=== PATIENT | female | born 1945 | race Caucasian/White ===

== ENCOUNTER 2017-07-24 18:33 | Observation (INO) ==
--- NOTE | 2017-07-24 21:17 | Emergency Department Note ---
Disposition Clinical Impression: Cough, Acute electrocardiogram changes Pneumonia Qualifiers: Pneumonia type: due to unspecified organism Laterality: right Lung location: lower lobe of lung Qualified Code(s): J18.1 - Lobar pneumonia, unspecified organism Atrial fibrillation Qualifiers: Atrial fibrillation type: chronic Qualified Code(s): I48.2 - Chronic atrial fibrillation Disposition: Admitted As Inpatient Condition: Good Instructions: Pneumonia (ED), Acute Cough (ED) Referrals: Darline Coker [Primary Care Provider] - Forms: ED Satisfaction Letter Time of Disposition: 00:53 General Adult HPI - General Chief complaint: ED Upper Respiratory Infection Stated complaint: "cough" Time Seen by Provider: 07/24/17 20:05 Source: patient Limitations: no limitations Nursing Notes Reviewed: Yes Vital Signs Reviewed: Yes - History of Present Illness HPI Narrative: Patient is a 72-year-old female that presents the emergency department for cough and shortness of breath. States this is been ongoing for the past 4 days and has progressively been getting worse. She states that she has been coughing up a whitish material. Patient does state that she has had a fever. She states that she has not checked her temperature but states that she has felt very warm. Patient does state that she has had generalized body aches. Patient denies ever having anything like this before. Patient denies any active chest pain at this time. Patient states that overall she just does not feel well. Pain Scale: 0 - Related Data Home Medications Medication Instructions Recorded Confirmed Alendronate Sodium [Fosamax] 70 mg PO QWEEK PRN 04/05/15 04/05/15 Aspirin Enteric Coated [Aspirin EC] 81 mg PO DAILY 04/05/15 04/05/15 Cholecalciferol (Vitamin D3) 1,000 unit PO DAILY 04/05/15 04/05/15 [Vitamin D3] Ergocalciferol (VITAMIN D2) 50,000 unit PO QWEEK PRN 04/05/15 04/05/15 [Vitamin D2 (50,000 UNIT)] Furosemide [Lasix] 40 mg PO DAILY PRN 04/05/15 04/05/15 Letrozole [Femara] 2.5 mg PO DAILY 04/05/15 04/05/15 Levothyroxine [Synthroid] 75 mcg PO DAILY 04/05/15 04/05/15 Lovastatin [Altoprev] 40 mg PO DAILY 04/05/15 04/05/15 Omeprazole [PriLOSEC] 20 mg PO DAILY 04/05/15 04/05/15 Pioglitazone [Actos] 45 mg PO DAILY 04/05/15 04/05/15 Potassium Chloride 20 meq PO BID 04/05/15 04/05/15 Sertraline [Zoloft] 100 mg PO DAILY 04/05/15 04/05/15 Sucralfate [Carafate] 1 gm PO DAILY 04/05/15 04/05/15 hydroCHLOROthiazide 25 mg PO DAILY 04/05/15 04/05/15 [Hydrochlorothiazide] Previous Rx's Medication Instructions Recorded Diltiazem CD (24hr) [Cardizem CD] 360 mg PO DAILY #30 cap.er.24h 04/07/15 Metoprolol XL (24 HR) Succ [Toprol 100 mg PO DAILY #30 tab.er.24h 04/07/15 Xl] Ondansetron ODT [Zofran ODT] 1 - 2 tab SL Q4HR #20 tab.rapdis 07/30/15 cephALEXin [Cephalexin] 500 mg PO QID #28 tablet 04/10/16 Allergies Allergy/AdvReac Type Severity Reaction Status Date / Time codeine Allergy Palpitation Verified 04/10/16 20:43 s All systems ED: reviewed and negative except as stated. Constitutional: Reports: fever Cardiovascular: Denies: chest pain Respiratory: Reports: cough, dyspnea, sputum production Gastrointestinal: Denies: abdominal pain, nausea, vomiting Past Medical History - Past Medical History Medical history: Reports: atrial fibrillation, cancer, DVT, diabetes, GERD, hypertension, thyroid disease Surgical history: Reports: , cancer surgery, cholecystectomy, hysterectomy, orthopedic, other Psychiatric history: Reports: no psych history - Social History Smoking Status: Never smoker Smokeless Tobacco Status: No Alcohol use: Reports: none Drug use: Reports: none Physical Exam - General Limitations: no limitations General appearance: alert, in no apparent distress - Head Head exam: atraumatic, normocephalic - Eye Eye exam: Present: normal appearance, EOMI - Neck Neck exam: Present: normal inspection, full ROM, trachea midline - Respiratory Respiratory exam: Present: other (Course breath sounds bilaterally.) - Cardiovascular Cardiovascular exam: Present: tachycardia, normal heart sounds, +S1, +S2 - Abdominal Exam Abdominal exam: Present: soft, Non-Tender, normal bowel sounds - Neurological Exam Neurological exam: Present: alert, oriented X3 - Psychiatric Psychiatric exam: Present: normal affect, normal mood - Skin Skin exam: Present: warm, dry, intact Course Vital Signs Temperature 98.4 F 07/24/17 18:43 Pulse Rate 105 07/24/17 18:43 Respiratory Rate 16 07/24/17 18:43 Blood Pressure 155/91 07/24/17 18:43 O2 Sat by Pulse Oximetry 94 07/24/17 18:43 Temperature 98.4 F 07/24/17 18:43 Pulse Rate 105 07/24/17 18:43 Respiratory Rate 16 07/24/17 18:43 Blood Pressure 155/91 07/24/17 18:43 O2 Sat by Pulse Oximetry 94 07/24/17 18:43 Oxygen Delivery Oxygen Delivery Room Air Medical Decision Making - MDM Narrative Medical decision making narrative: Due to the patient presenting with cough shortness of breath and overall not feeling well we will obtain a CBC, BMP, troponin and chest x-ray and EKG. The chest x-ray was read as negative however after looking at the chest x-ray I feel that there may be some consolidation in the right lower lobe. Patient will be treated with IV antibiotics and due to the EKG findings of the lateral depressions I feel that this patient will need to be admitted to the hospital for further evaluation and management. There is concern that this could be related to possible cardiac ischemia. I informed the patient the findings on her EKG and the possibility of pneumonia. She is willing to be admitted to the hospital. I called and spoke with the hospitalist and she has accepted the patient to their service. The patient will be admitted to the hospital at this time for further evaluation and management. - Lab Data Lab results reviewed: Yes I reviewed the patient's lab results. Result diagrams: 07/24/17 21:35 07/24/17 21:35 Lab Results 07/24/17 07/24/17 Range/Units 21:35 21:35 WBC 4.5 (4.3-11.1) K/mcL RBC 4.18 (3.82-4.97) M/mcL Hgb 12.9 (11.5-15.4) g/dL Hct 38.4 (35.3-44.9) % MCV 91.9 (83.0-100.0) fL MCH 30.9 (28.0-33.3) pg MCHC 33.6 (31.6-35.5) g/dL RDW 13.4 (11.5-14.5) % Plt Count 174 (140-400) K/mcL MPV 10.2 (9.4-12.4) fL Immature Gran % 0.2 (0-4) % Seg Neutrophils % 63.3 % Lymphocytes % 19.6 % Monocytes % 12.9 % Eosinophils % 3.8 % Basophils % 0.2 % Neutrophils # 2.9 (1.6-8.9) K/mcL Lymphocytes # 0.9 (0.6-4.6) K/mcL Monocytes # 0.6 (0.0-1.3) K/mcL Eosinophils # 0.2 (0.0-0.6) K/mcL Basophils # 0.0 (0.0-0.2) K/mcL Sodium 138 (136-145) mEq/L Potassium 2.9 L (3.5-5.1) mEq/L Chloride 100 (98-107) mEq/L Carbon Dioxide 30 H (23-29) mEq/L BUN 11 (8-23) mg/dL Creatinine 0.62 (0.60-1.20) mg/dL Est GFR ( Amer) > 60 (> 60) Est GFR (Non-Af Amer) > 60 (> 60) BUN/Creatinine Ratio 18 (6-26) Glucose 155 H (70-105) mg/dL Calculated Osmolality 289 (280-300) Calcium 8.8 (8.6-10.3) mg/dL Troponin I < 0.03 (< 0.04) ng/mL - Radiology Data Radiology results reviewed: Yes I reviewed the patient's radiology results. Chest X-Ray 07/24/17 18:46 IMPRESSION: 1. No focal airspace disease. 2. Cardiomegaly. D/ / Mal Diaz MD / Mal Diaz MD Interpreting Provider: Mal Diaz MD - EKG Data EKG #1 EKG attestation: Yes I reviewed and interpreted this EKG. EKG results narrative: EKG shows atrial fibrillation at a rate of 91 bpm, QRS ratio 99, QTC of 426. There are some mild depressions in V4 V5 and V6. This is compared to previous EKG on 04/05/15 which also showed atrial fibrillation with rapid ventricular response at a rate of 105 bpm. Depressions were not present on previous EKG. EKG #2 EKG attestation: Yes I reviewed and interpreted this EKG. EKG results narrative: EKG showed atrial fibrillation rate of 103 bpm, QRS duration of 105, QTC of 436. The depressions in V4 V5 and V6 seemed to have worsened. EKG was obtained at 2331.
[2017-07-24 21:47] LABS: Basophils % 0.2 %; Eosinophils # 0.2 K/mcL (0.0-0.6); Eosinophils % 3.8 %; Hematocrit 38.4 % (35.3-44.9); Hemoglobin 12.9 g/dL (11.5-15.4); Immature Granulocytes % 0.2 % (0-4); Lymphocytes # 0.9 K/mcL (0.6-4.6); Lymphocytes % 19.6 %; Mean Corpuscular HGB Conc 33.6 g/dL (31.6-35.5); Mean Corpuscular Hemoglobin 30.9 pg (28.0-33.3); Mean Corpuscular Volume 91.9 fL (83.0-100.0); Mean Platelet Volume 10.2 fL (9.4-12.4); Monocytes # 0.6 K/mcL (0.0-1.3); Monocytes % 12.9 %; Neutrophils # 2.9 K/mcL (1.6-8.9); Platelet Count 174 K/mcL (140-400); Red Blood Count 4.18 M/mcL (3.82-4.97); Red Cell Distribution Width 13.4 % (11.5-14.5); Segmented Neutrophils % 63.3 %
[2017-07-24 22:08] LABS: BUN/Creatinine Ratio 18 (6-26); Blood Urea Nitrogen 11 mg/dL (8-23); Calcium 8.8 mg/dL (8.6-10.3); Carbon Dioxide 30 mEq/L (23-29); Chloride 100 mEq/L (98-107); Glucose 155 mg/dL (70-105); Osmolality,Calculated 289 (280-300); Potassium 2.9 mEq/L (3.5-5.1); Sodium 138 mEq/L (136-145); eGFR For African Americans > 60 (> 60); eGFR For Non-African Americans > 60 (> 60)
[2017-07-24 22:09] LABS: Troponin I < 0.03 ng/mL (< 0.04)
[2017-07-24] MEDS ORDERED: Aspirin 81 MG TAB.CHEW PO STA (23:44)
[2017-07-24] MEDS ORDERED: Potassium Chloride Elixir 20 MEQ/15 ML UDC PO ONE (23:58)
--- NOTE | 2017-07-25 00:14 | Emergency Department Note ---
Disposition Clinical Impression: Cough, Acute electrocardiogram changes, Atrial fibrillation Pneumonia Qualifiers: Pneumonia type: due to unspecified organism Laterality: right Lung location: lower lobe of lung Qualified Code(s): J18.1 - Lobar pneumonia, unspecified organism Disposition: Admitted As Inpatient Condition: Good Instructions: Pneumonia (ED), Acute Cough (ED) Referrals: Darline Coker [Primary Care Provider] - Forms: ED Satisfaction Letter General Adult HPI - General Chief complaint: ED Upper Respiratory Infection Stated complaint: "cough" Time Seen by Provider: 07/24/17 20:05 Source: patient Limitations: no limitations - History of Present Illness Pain Scale: 0 - Related Data Home Medications Medication Instructions Recorded Confirmed Alendronate Sodium [Fosamax] 70 mg PO QWEEK PRN 04/05/15 04/05/15 Aspirin Enteric Coated [Aspirin EC] 81 mg PO DAILY 04/05/15 04/05/15 Cholecalciferol (Vitamin D3) 1,000 unit PO DAILY 04/05/15 04/05/15 [Vitamin D3] Ergocalciferol (VITAMIN D2) 50,000 unit PO QWEEK PRN 04/05/15 04/05/15 [Vitamin D2 (50,000 UNIT)] Furosemide [Lasix] 40 mg PO DAILY PRN 04/05/15 04/05/15 Letrozole [Femara] 2.5 mg PO DAILY 04/05/15 04/05/15 Levothyroxine [Synthroid] 75 mcg PO DAILY 04/05/15 04/05/15 Lovastatin [Altoprev] 40 mg PO DAILY 04/05/15 04/05/15 Omeprazole [PriLOSEC] 20 mg PO DAILY 04/05/15 04/05/15 Pioglitazone [Actos] 45 mg PO DAILY 04/05/15 04/05/15 Potassium Chloride 20 meq PO BID 04/05/15 04/05/15 Sertraline [Zoloft] 100 mg PO DAILY 04/05/15 04/05/15 Sucralfate [Carafate] 1 gm PO DAILY 04/05/15 04/05/15 hydroCHLOROthiazide 25 mg PO DAILY 04/05/15 04/05/15 [Hydrochlorothiazide] Previous Rx's Medication Instructions Recorded Diltiazem CD (24hr) [Cardizem CD] 360 mg PO DAILY #30 cap.er.24h 04/07/15 Metoprolol XL (24 HR) Succ [Toprol 100 mg PO DAILY #30 tab.er.24h 04/07/15 Xl] Ondansetron ODT [Zofran ODT] 1 - 2 tab SL Q4HR #20 tab.rapdis 07/30/15 cephALEXin [Cephalexin] 500 mg PO QID #28 tablet 04/10/16 Allergies Allergy/AdvReac Type Severity Reaction Status Date / Time codeine Allergy Palpitation Verified 04/10/16 20:43 s Constitutional: Reports: fever Cardiovascular: Denies: chest pain Respiratory: Reports: cough, dyspnea, sputum production Gastrointestinal: Denies: abdominal pain, nausea, vomiting Past Medical History - Past Medical History Medical history: Reports: atrial fibrillation, cancer, DVT, diabetes, GERD, hypertension, thyroid disease Surgical history: Reports: , cancer surgery, cholecystectomy, hysterectomy, orthopedic, other Psychiatric history: Reports: no psych history - Social History Smoking Status: Never smoker Smokeless Tobacco Status: No Alcohol use: Reports: none Drug use: Reports: none Physical Exam - General Limitations: no limitations General appearance: alert, in no apparent distress Course Vital Signs Temperature 98.4 F 07/24/17 18:43 Pulse Rate 105 07/24/17 18:43 Respiratory Rate 16 07/24/17 18:43 Blood Pressure 155/91 07/24/17 18:43 O2 Sat by Pulse Oximetry 94 07/24/17 18:43 Temperature 99.0 F 07/25/17 00:11 Pulse Rate 80 07/25/17 00:11 Respiratory Rate 14 07/25/17 00:11 Blood Pressure 159/87 07/25/17 00:11 O2 Sat by Pulse Oximetry 97 07/25/17 00:11 Oxygen Delivery Oxygen Delivery Room Air Medical Decision Making - Lab Data Result diagrams: 07/24/17 21:35 07/24/17 21:35 Lab Results 07/24/17 07/24/17 Range/Units 21:35 21:35 WBC 4.5 (4.3-11.1) K/mcL RBC 4.18 (3.82-4.97) M/mcL Hgb 12.9 (11.5-15.4) g/dL Hct 38.4 (35.3-44.9) % MCV 91.9 (83.0-100.0) fL MCH 30.9 (28.0-33.3) pg MCHC 33.6 (31.6-35.5) g/dL RDW 13.4 (11.5-14.5) % Plt Count 174 (140-400) K/mcL MPV 10.2 (9.4-12.4) fL Immature Gran % 0.2 (0-4) % Seg Neutrophils % 63.3 % Lymphocytes % 19.6 % Monocytes % 12.9 % Eosinophils % 3.8 % Basophils % 0.2 % Neutrophils # 2.9 (1.6-8.9) K/mcL Lymphocytes # 0.9 (0.6-4.6) K/mcL Monocytes # 0.6 (0.0-1.3) K/mcL Eosinophils # 0.2 (0.0-0.6) K/mcL Basophils # 0.0 (0.0-0.2) K/mcL Sodium 138 (136-145) mEq/L Potassium 2.9 L (3.5-5.1) mEq/L Chloride 100 (98-107) mEq/L Carbon Dioxide 30 H (23-29) mEq/L BUN 11 (8-23) mg/dL Creatinine 0.62 (0.60-1.20) mg/dL Est GFR ( Amer) > 60 (> 60) Est GFR (Non-Af Amer) > 60 (> 60) BUN/Creatinine Ratio 18 (6-26) Glucose 155 H (70-105) mg/dL Calculated Osmolality 289 (280-300) Calcium 8.8 (8.6-10.3) mg/dL Troponin I < 0.03 (< 0.04) ng/mL Attestation Statement - Attestation Attestation: I examined this patient and my medical decision-making was reviewed with the Resident Physician, Dr. Valera. I agree with the documented findings, disposition and treatment plan as described except to the extent set forth below. Patient is a 72-year-old white female with no pre-existing lung disease who presents to the emergency department with a four-day history of gradually worsening nasal congestion and sinus pain and pressure, productive cough with whitish sputum and generalized body aches. Patient also complains of subjective fevers and chills over the past few days. Patient's having some mild shortness of breath but denies any chest pain pressure or heaviness. Patient denies any palpitations, no back or flank pain, no abdominal pain, and no posttussive emesis. I agree with patient's physical exam findings as documented. Vital signs are stable on arrival. Patient is in no acute distress no signs of respiratory distress on assessment. Patient was placed on monitoring and pulse ox EKG was obtained which showed some new ST depression in the lateral leads 1 mm. This is new compared to an old EKG, and she has history of chronic A. fib and rhythm showed her to be in atrial fibrillation but rate controlled. Patient had lab evaluation including a 2 view chest x-ray. Due to her abnormal EKG was also including a troponin. Chest x-ray shows some streak artifact along the right lower lobe that seen on both use concerning for possible early pneumonia. Patient's troponin is negative. Briefly evaluations patient still denies chest discomfort or repeat EKG was obtained which shows persistent ST depression in lateral leads. Patient was administered aspirin and will admit for further evaluation of abnormal EKG. Concerned that this could be more of a presentation of atypical angina or exertional dyspnea causing her EKG changes. Patient will be started on IV Rocephin and Zithromax for community-acquired pneumonia as well. Case was discussed with hospitalist and patient will be admitted for further evaluation and management.
[2017-07-25] MEDS ORDERED: Azithromycin 500 MG in D5% in Water 250 ML IVPB ONE (00:52)
[2017-07-25] MEDS ORDERED: cefTRIAXone 1,000 MG in Water for inj. (sterile) 20 ML 10 ML IVP ONE (00:52)
[2017-07-25] MEDS ORDERED: Naloxone 0.4 MG/ML INJ IVP PRN (01:37)
[2017-07-25] MEDS ORDERED: Dextrose Gel 15 GM/37.5 ML TUBE PO PRN ×2 (01:41)
[2017-07-25] MEDS ORDERED: *HR* Dextrose 50 % in Water (Syg) 50 ML SYRINGE IVP PRN (01:41)
[2017-07-25] MEDS ORDERED: D5% in Water 1,000 ML IVC PRN (01:41)
--- NOTE | 2017-07-25 01:44 | Internal Med History&Physical ---
Date of Encounter: 07/25/17 Time of Encounter: 01:43 Internal Medicine - H&P: HPI Chief complaint: Cough Admitted From: Home Plans for Post Hospital Care: Home History of present illness: Ms. Mayers is a 72 year old female with DM, Afib not on A/C, presented to the ER with hx of 4 days of cough, and shortness of breath after coughing. Cough is productive of white/foamy phlegm. She denies fever or chills, recent travel, no sick contacts. She endorsed chronic arthralgias. She did not receive a flu vaccine in this season. Work up in the ER unremarkable, save for hyokalemia, patient is on diuretics at home. CXR is without infiltrates EKG showed some <0.5mm ST depression in the lateral leads, patient has no cardiac symptoms-she denies CP, SOB on exertion or at rest, orthopnea, PND, no increased leg swelling She has no neurologic symptoms She has received IV antibiotics for presumed PNA in the ER She is wheezing during my eval even though she has no formal diagnosis of COPD or asthma She likely has viral bronchitis withh hyperreactive airways, we will place on observation for this, ECHO has been ordered for a.m and repeat EKG ordered as well Past Med Surg Social Fam HX - Past Medical History Medical history: atrial fibrillation, cancer, DVT, diabetes, GERD, hypertension , thyroid disease Psychiatric history: no psych history - Past Surgical History Surgical History: , cancer surgery, cholecystectomy, hysterectomy, orthopedic, other - Social History Smoking Status: Never smoker Smokeless Tobacco Status: No Alcohol use: none Drug use: none - Family History Mother Living Status: Hx Family Cancer: Yes (bone cancer) Father Hx Family Cardiac Disorders: Yes (heart attack, blood clots) Internal Medicine - H&P: Meds Alendronate Sodium [Fosamax] 70 mg PO QWEEK PRN 04/05/15 [History] Aspirin Enteric Coated [Aspirin EC] 81 mg PO DAILY 04/05/15 [History] Cholecalciferol (Vitamin D3) [Vitamin D3] 1,000 unit PO DAILY 04/05/15 [History] Ergocalciferol (VITAMIN D2) [Vitamin D2 (50,000 UNIT)] 50,000 unit PO QWEEK PRN 04/05/15 [History] Furosemide [Lasix] 40 mg PO DAILY PRN 04/05/15 [History] Letrozole [Femara] 2.5 mg PO DAILY 04/05/15 [History] Levothyroxine [Synthroid] 75 mcg PO DAILY 04/05/15 [History] Lovastatin [Altoprev] 40 mg PO DAILY 04/05/15 [History] Omeprazole [PriLOSEC] 20 mg PO DAILY 04/05/15 [History] Pioglitazone [Actos] 45 mg PO DAILY 04/05/15 [History] Potassium Chloride 20 meq PO BID 04/05/15 [History] Sertraline [Zoloft] 100 mg PO DAILY 04/05/15 [History] Sucralfate [Carafate] 1 gm PO DAILY 04/05/15 [History] hydroCHLOROthiazide [Hydrochlorothiazide] 25 mg PO DAILY 04/05/15 [History] Diltiazem CD (24hr) [Cardizem CD] 360 mg PO DAILY #30 cap.er.24h 04/07/15 [Rx] Metoprolol XL (24 HR) Succ [Toprol Xl] 100 mg PO DAILY #30 tab.er.24h 04/07/15 [ Rx] Ondansetron ODT [Zofran ODT] 1 - 2 tab SL Q4HR #20 tab.rapdis 07/30/15 [Rx] cephALEXin [Cephalexin] 500 mg PO QID #28 tablet 04/10/16 [Rx] 3 Allergy/AdvReac Type Severity Reaction Status Date / Time codeine Allergy Palpitation Verified 04/10/16 20:43 s All Systems PM: A 10-system review of systems was performed and is negative for pertinent findings except as documented above in the HPI. - Constitutional Constitutional: no chills, no fever(s), no night sweats - EENT Eyes: no change in vision, no discharge, no pain, no photophobia Ears: no ear discharge, no ear pain, no tinnitus Nose, mouth and throat: no dysphagia, no nasal discharge, no neck pain, no sore throat - Cardiovascular Cardiovascular ROS IM: no chest pain, no diaphoresis, no dyspnea, no lightheadedness, no palpitations, no syncope - Respiratory Respiratory: as per HPI - Gastrointestinal Gastrointestinal: no abdominal pain, no diarrhea, no hematemesis, no hematochezia, no melena, no nausea, no vomiting - Genitourinary Genitourinary: no change in urinary stream, no dysuria, no flank pain, no hematuria - Musculoskeletal Musculoskeletal ROS IM: no numbness, no tingling - Integumentary Integumentary IM: no rash, no unusual bruising - Neurological Neurological ROS: no confusion, no convulsions, no focal weakness, no numbness, no tingling, no tremor(s) - Hematologic/Lymphatic Hematologic/Lymphatic: no easy bruising - Constitutional Vitals: Temp Pulse Resp BP Pulse Ox 99.0 F 80 16 151/89 97 07/25/17 00:11 07/25/17 00:11 07/25/17 01:37 07/25/17 01:37 07/25/17 00:11 General appearance: Present: A&O X 3, morbidly obese, no acute distress - Head Head exam: Present: atraumatic, normocephalic - Eye Eye exam: Present: PERRL, conjuntiva pink, sclera anicteric Pupils: Present: PERRL - Neck Neck exam general surgery: Present: supple, trachea midline. Absent: lymphadenopathy - Respiratory Respiratory exam: Present: wheezes (bilateral, equal, worse anteriroly, ). Absent: accessory muscle use, rales, rhonchi - Cardiovascular Cardiovascular exam: Present: RRR, +S1, +S2. Absent: diastolic murmur, gallop, rubs, systolic murmur - GI/Abdominal GI/Abdominal exam: Present: normal bowel sounds, soft, no peritoneal signs. Absent: distended, tenderness - Extremities Exam Extremities exam: Present: warm, radial pulses palpable and symmetrical. Absent : calf tenderness, cyanotic, pedal edema - Neurological Exam Neurological exam: Present: alert, CN II-XII intact, oriented X3, no focal deficits. Absent: pronater drift, facial droop, speech deficit - Skin Skin exam: Present: dry, intact Internal Med - H&P Results - Labs CBC & Chem 7: 07/24/17 21:35 07/24/17 21:35 - Assessment and plan (1) Abnormal EKG Current Visit: Yes Status: Acute Assessment and plan: Patient with SOB and bronchitis No chest pain Hx of Afib with <0.5mm ST depression in lateral leads Rpt EKG a.m, Obtain ECHO a.m Initial trop negative Rpt trop a.m (2) Bronchitis Current Visit: Yes Status: Acute Assessment and plan: Possibly viral Duonebs prn, robitussin, levaquin NO infiltrates on CXR Obtain resp infectious panel (3) Atrial fibrillation Current Visit: Yes Status: Chronic Assessment and plan: HR controlled Not on anticoagulation due to hx of GIB Continue home meds Qualifiers: Atrial fibrillation type: chronic Qualified Code(s): I48.2 - Chronic atrial fibrillation (4) Diabetes Current Visit: Yes Status: Chronic Assessment and plan: Correctional dose insulin FS ACHS ADA diet Qualifiers: Diabetes mellitus type: type 2 Diabetes mellitus intermediate teacher insulin use: without skilled nursing use Diabetes mellitus complication status: without complication Qualified Code(s): E11.9 - Type 2 diabetes mellitus without complications (5) Obesity Current Visit: Yes Status: Chronic Assessment and plan: lifestyle modification Qualifiers: Obesity type: unspecified obesity type Obesity classification: adult class 3 (BMI >= 40) Serious obesity comorbidity presence: without serious comorbidity Body mass index: BMI 40.0-44.9 Qualified Code(s): E66.9 - Obesity, unspecified; Z68.41 - Body mass index (BMI) 40.0-44.9, adult; Z68.41 - Body mass index (BMI) 40.0-44.9, adult; Z68.41 - Body mass index (BMI) 40.0-44.9 , adult; Z68.41 - Body mass index (BMI) 40.0-44.9, adult - Time Spent With Patient Total time spent is greater than 50% in coordination of care (as documented) at patient's floor/unit and/or counseling patient:
[2017-07-25] MEDS ORDERED: Ipratropium/Albuterol Neb 3 ML IH PRN (02:37)
[2017-07-25 04:02] LABS: Adenovirus Not Detected (Not Detect); Bordetella Pertussis Not Detected (Not Detect); Chlamydophila pneumoniae Not Detected (Not Detect); Coronavirus 229E Not Detected (Not Detect); Coronavirus HKU1 Not Detected (Not Detect); Coronavirus NL63 Not Detected (Not Detect); Coronavirus OC43 Not Detected (Not Detect); Human Metapneumovirus Not Detected (Not Detect); Human Rhinovirus/Enterovirus Not Detected (Not Detect); Influenza A Subtype 2009 H1 Not Detected (Not Detect); Influenza A Untypeable Not Detected (Not Detect); Influenza B ***DETECTED*** (Not Detect); Mycoplasma pneumoniae Not Detected (Not Detect); Parainfluenza Virus 1 Not Detected (Not Detect); Parainfluenza Virus 2 Not Detected (Not Detect); Parainfluenza Virus 3 Not Detected (Not Detect); Parainfluenza Virus 4 Not Detected (Not Detect); Respiratory Syncytial Virus Not Detected (Not Detect)
[2017-07-25 05:17] LABS: BUN/Creatinine Ratio 15 (6-26); Blood Urea Nitrogen 9 mg/dL (8-23); Calcium 8.8 mg/dL (8.6-10.3); Carbon Dioxide 25 mEq/L (23-29); Chloride 100 mEq/L (98-107); Glucose 247 mg/dL (70-105); Osmolality,Calculated 287 (280-300); Potassium 3.4 mEq/L (3.5-5.1); Sodium 135 mEq/L (136-145); eGFR For African Americans > 60 (> 60); eGFR For Non-African Americans > 60 (> 60)
[2017-07-25 05:18] LABS: Troponin I < 0.03 ng/mL (< 0.04)
[2017-07-25] MEDS: Insulin LISPRO 300 UNITS/3 ML VIAL SQ SCH ×4 (08:44→21:14)
[2017-07-25] MEDS ORDERED: Aspirin Enteric Coated 81 MG Tablet PO SCH (09:00)
[2017-07-25] MEDS: predniSONE 20 MG TABLET PO SCH (09:19)
[2017-07-25] MEDS: Levofloxacin 750 MG/150 ML 750 MG/150 ML BAG IVPB SCH (09:20)
[2017-07-25] MEDS: Ipratropium/Albuterol Neb 3 ML IH SCH ×5 (10:54→23:50)
[2017-07-25] MEDS ORDERED: GuaiFENesin Liq 200 MG/10 ML UDC PO PRN (16:07)
--- NOTE | 2017-07-25 17:07 | Event Note ---
Date of Encounter: 07/25/17 Time of Encounter: 17:04 Seen and examined at bedside. Patient is new to me, information obtained from chart review and patient report. Still with some shortness of breath and cough but overall improved. Afebrile. Denies chest pain. (1) Abnormal EKG No chest pain. Hx of Afib with <0.5mm ST depression in lateral leads. Serial troponin negative, repeat EKG with no acute ST changes. Echocardiogram pending. (2) influenza B Symptomatic with SOB and cough. Respiratory PCR with influenza B. Start Tamiflu. Duonebs prn, robitussin, levaquin (3) Atrial fibrillation HR initially controlled however with heart rates and 100s on 07/25/17 evening. Resume home CCB, BB. Give one-time dose IV diltiazem. No anticoagulation due to history of GI bleed. Monitor on telemetry. (4) Diabetes Correctional dose insulin FS ACHS ADA diet (5) Obesity lifestyle modification
[2017-07-25] MEDS: Diltiazem CD (24hr) 180 MG CAPSULE PO SCH (17:20)
[2017-07-25] MEDS: Metoprolol XL (24 HR) Succ 50 MG TAB.ER.24H PO SCH (17:52)
[2017-07-26] MEDS: Ipratropium/Albuterol Neb 3 ML IH SCH ×3 (03:24→15:38)
[2017-07-26 06:52] LABS: Hematocrit 36.9 % (35.3-44.9); Hemoglobin 12.6 g/dL (11.5-15.4); Mean Corpuscular HGB Conc 34.1 g/dL (31.6-35.5); Mean Corpuscular Hemoglobin 30.9 pg (28.0-33.3); Mean Corpuscular Volume 90.4 fL (83.0-100.0); Mean Platelet Volume 10.5 fL (9.4-12.4); Platelet Count 154 K/mcL (140-400); Red Blood Count 4.08 M/mcL (3.82-4.97); Red Cell Distribution Width 13.2 % (11.5-14.5)
[2017-07-26] MEDS: predniSONE 20 MG TABLET PO SCH (08:43)
[2017-07-26] MEDS: Diltiazem CD (24hr) 180 MG CAPSULE PO SCH (08:43)
[2017-07-26] MEDS: Aspirin Enteric Coated 81 MG Tablet PO SCH (08:43)
[2017-07-26] MEDS: Insulin LISPRO 300 UNITS/3 ML VIAL SQ SCH ×4 (08:44→20:23)
[2017-07-26] MEDS: Levofloxacin 750 MG/150 ML 750 MG/150 ML BAG IVPB SCH (08:45)
[2017-07-26] MEDS: Metoprolol XL (24 HR) Succ 50 MG TAB.ER.24H PO SCH (08:49)
[2017-07-26] MEDS ORDERED: Furosemide 20 MG/2 ML VIAL IVP ONE (09:23)
[2017-07-26] MEDS ORDERED: Isovue-370 500 ML INFUS..BTL IV ONE (11:28)
[2017-07-26 15:29] LABS: BUN/Creatinine Ratio 18 (6-26); Blood Urea Nitrogen 13 mg/dL (8-23); Carbon Dioxide 24 mEq/L (23-29); Chloride 101 mEq/L (98-107); Glucose 171 mg/dL (70-105); Osmolality,Calculated 284 (280-300); Potassium 3.8 mEq/L (3.5-5.1); Sodium 135 mEq/L (136-145); eGFR For African Americans > 60 (> 60); eGFR For Non-African Americans > 60 (> 60)
--- NOTE | 2017-07-26 15:31 | Electrocardiograph Report ---
[place] [id number] Test Date: 2017-07-25 Pat Name: Lisbeth Mayers Department: 113 Room: 3B13 Gender: F Policy Checker: : 1945 Requested By: Osvaldo Grewal Order Number: [id number] Reading MD: Jaye Gomez Measurements Intervals [place] Rate: 92 P: AR: 0 QRS: 95 QRSD: 99 T: 74 QT: 398 QTc: 447 Interpretive Statements ATRIAL FIBRILLATION WITH ABERRANT CONDUCTION OR VENTRICULAR PREMATURE COMPLEXES BORDERLINE RIGHT AXIS DEVIATION MODERATE ST DEPRESSION Electronically Signed On 07-26-2017 15:30:00 EDT by Jaye Gomez
--- NOTE | 2017-07-26 15:32 | Internal Med Progress Note ---
Date of Encounter: 07/26/17 Time of Encounter: 15:30 - Assessment and plan (1) Influenza B Current Visit: Yes Status: Acute Assessment and plan: Symptomatically shortness of breath, cough and URI symptoms. Respiratory PCR positive for influenza B. Start Tamiflu. (2) Bronchitis Current Visit: Yes Status: Acute Assessment and plan: l symptomatic with cough, URI symptoms and shortness of breath. CXR without infiltrate. Positive for influenza B as noted above. Suspect component of COPD exacerbation/bronchitis. Continue IV Levaquin, steroids, bronchodilators. (3) Abdominal pain Current Visit: Yes Status: Acute Assessment and plan: Complaints of right upper quadrant pain that is worse with coughing. Suspect musculoskeletal with excessive cough however right upper quadrant tender with palpation. ABD CT pending. Qualifiers: Abdominal location: right upper quadrant Qualified Code(s): R10.11 - Right upper quadrant pain (4) Atrial fibrillation Current Visit: Yes Status: Chronic Assessment and plan: HR controlled Not on anticoagulation due to hx of GIB Continue home meds Qualifiers: Atrial fibrillation type: chronic Qualified Code(s): I48.2 - Chronic atrial fibrillation (5) Diabetes Current Visit: Yes Status: Chronic Assessment and plan: Correctional dose insulin FS ACHS ADA diet Qualifiers: Diabetes mellitus type: type 2 Diabetes mellitus terminal block assembler insulin use: without terminal block assembler use Diabetes mellitus complication status: without complication Qualified Code(s): E11.9 - Type 2 diabetes mellitus without complications (6) Obesity Current Visit: Yes Status: Chronic Assessment and plan: lifestyle modification Qualifiers: Obesity type: unspecified obesity type Obesity classification: adult class 3 (BMI >= 40) Serious obesity comorbidity presence: without serious comorbidity Body mass index: BMI 40.0-44.9 Qualified Code(s): E66.9 - Obesity, unspecified; Z68.41 - Body mass index (BMI) 40.0-44.9, adult; Z68.41 - Body mass index (BMI) 40.0-44.9, adult; Z68.41 - Body mass index (BMI) 40.0-44.9 , adult; Z68.41 - Body mass index (BMI) 40.0-44.9, adult (7) DVT prophylaxis Current Visit: Yes Status: Acute Assessment and plan: SCD - Time Spent With Patient Total time spent is greater than 50% in coordination of care (as documented) at patient's floor/unit and/or counseling patient: - Subjective Interval history: Seen and examined at bedside. She is complaining of right upper quadrant pain that is worse with coughing and palpation. Overall says she does not feel well today. Still wheezing and short of breath. - Constitutional Vitals: Temp Pulse Resp BP Pulse Ox 98.3 F 89 17 154/96 98 07/26/17 11:22 07/26/17 11:22 07/26/17 11:22 07/26/17 11:22 07/26/17 11:22 General appearance: Present: A&O X 3, morbidly obese, no acute distress - Head Head exam: Present: atraumatic, normocephalic - Eye Eye exam: Present: PERRL, conjuntiva pink, sclera anicteric Pupils: Present: PERRL - Neck Neck exam general surgery: Present: supple, trachea midline. Absent: lymphadenopathy - Respiratory Respiratory exam: Present: CTAB, wheezes. Absent: accessory muscle use, rales, rhonchi - Cardiovascular Cardiovascular exam: Present: irregular rhythm, +S1, +S2. Absent: diastolic murmur, gallop, rubs, systolic murmur - GI/Abdominal GI/Abdominal exam: Present: normal bowel sounds, soft, tenderness (RUQ tenderness ), no peritoneal signs. Absent: distended - Extremities Exam Extremities exam: Present: pedal edema, warm, radial pulses palpable and symmetrical. Absent: calf tenderness, cyanotic - Neurological Exam Neurological exam: Present: CN II-XII intact, oriented X3, no focal deficits. Absent: pronater drift, facial droop, speech deficit - Skin Skin exam: Present: dry, intact Internal Medicine: Result - Labs CBC & Chem 7: 07/26/17 06:42 07/26/17 14:24 Labs: Short CBC 07/26/17 Range/Units 06:42 WBC 5.9 (4.3-11.1) K/mcL Hgb 12.6 (11.5-15.4) g/dL Hct 36.9 (35.3-44.9) % Plt Count 154 (140-400) K/mcL BMP 07/26/17 14:24 Sodium 135 L Potassium 3.8 Chloride 101 Carbon Dioxide 24 BUN 13 Creatinine 0.73 Glucose 171 H Calcium 9.0 - Impressions Impressions Echocardiogram 07/25/17 01:39 Impressions: Atrial fibrillation with RVR during study. LVEF 50-55%. RV is dilated with normal function. Indeterminate diastolic function. Bi-atrial enlargement. Moderate tricuspid regurgitation. Moderate pulmonary hypertension. The IVC is dilated. Left Ventricular Wall Motion: Rest Echo Findings All wall segments showed normal motion. Findings: Study Quality * Technically challenging exam - patient in AFIB RVR during study. ECG Findings * Atrial fibrillation with RVR. Left Ventricle * LVEF 50-55%. * Normal LV chamber size and wall thickness. * Indeterminate diastolic function. Right Ventricle * RV is dilated with normal function. Left Atrium * Moderately dilated left atrium. Right Atrium * Severely dilated right atrium. Aortic Valve * No aortic regurgitation. * Aortic valve not well visualized. * Trileaflet aortic valve. * No aortic stenosis. Mitral Valve * No mitral regurgitation. * Normal mitral valve structure. * No mitral stenosis. Tricuspid Valve * Normal tricuspid valve structure. * Moderate tricuspid regurgitation. * Estimated RA pressure is 8 mmHg. * Estimated RVSP is 53 mmHg. * Moderate pulmonary hypertension. Pulmonic Valve * Pulmonic valve is not well visualized. * No pulmonic stenosis. * No pulmonic regurgitation. Pulmonary Artery * Pulmonary artery not well visualized. Aorta * Normally sized aortic root. Pericardium * There is no pericardial effusion present. Interatrial Septum * No evidence of PFO by color Doppler. IVC * The IVC is dilated. * > 50% respiratory change Abdomen/Pelvis CT 07/26/17 14:00 IMPRESSION: 1. No acute finding in the abdomen or pelvis to account for patient's abdominal pain. 2. Severe sigmoid and colonic diverticulosis. No evidence of diverticulitis. 3. Small hiatal hernia. 4. Status post cholecystectomy and hysterectomy. 5. Worsening anterolisthesis of L4 on L5 compared to the prior exam of July 29, 2013. This can be a cause of low back pain in some patients. D/ / 07/26/2017 15:06:14 Sathish Neumann MD / mary jo Interpreting Provider: Sathish Neumann MD - VTE Documentation of Mechanical Device: Intermittent pneumatic compression device Consult Discharge Plan - Plan Referrals: Darline Coker [Primary Care Provider] - 07/31/17 1:00 pm
--- NOTE | 2017-07-26 15:34 | Electrocardiograph Report ---
[place] [address] Test Date: 2017-07-25 Pat Name: Lisbeth Mayers Department: 113 Room: 3B13 Gender: F Cna Per Diem: MEERA : 1945 Requested By: Justina Calderón Order Number: [id number] Reading MD: Jaye Gomez Measurements Intervals [place] Rate: 93 P: [place]: 0 QRS: 99 QRSD: 98 T: 80 QT: 404 QTc: 455 Interpretive Statements ATRIAL FIBRILLATION BORDERLINE RIGHT AXIS DEVIATION MODERATE ST DEPRESSION Electronically Signed On 07-26-2017 15:32:58 EDT by Jaye Gomez
--- NOTE | 2017-07-26 15:35 | Electrocardiograph Report ---
[place] [address] Test Date: 2017-07-24 Pat Name: Lisbeth Mayers Department: 102 Room: 3B13 Gender: F Nutrition Assistant: Dyllan : 1945 Requested By: [id number] Order Number: [id number] Reading MD: Jaye Gomez Measurements Intervals [place] Rate: 91 P: [place]: 0 QRS: 100 QRSD: 99 T: 52 QT: 377 QTc: 426 Interpretive Statements ATRIAL FIBRILLATION WITH ABERRANT CONDUCTION OR VENTRICULAR PREMATURE COMPLEXES BORDERLINE RIGHT AXIS DEVIATION Electronically Signed On 07-26-2017 15:33:53 EDT by Jaye Gomez
[2017-07-26] MEDS ORDERED: Ipratropium/Albuterol Neb 3 ML IH PRN (15:39)
--- NOTE | 2017-07-26 15:41 | Electrocardiograph Report ---
[address] [address] Test Date: 2017-07-24 Pat Name: Lisbeth Mayers Department: 103 Room: 3B13 Gender: F Floorperson: VALENTE : 1945 Requested By: Osvaldo Grewal Order Number: [id number] Reading MD: Jaye Gomez Measurements Intervals [place] Rate: 103 P: [place]: 0 QRS: 93 QRSD: 105 T: 95 QT: 376 QTc: 436 Interpretive Statements ATRIAL FIBRILLATION WITH RAPID VENTRICULAR RESPONSE WITH ABERRANT CONDUCTION OR VENTRICULAR PREMATURE COMPLEXES BORDERLINE RIGHT AXIS DEVIATION [QRS AXIS > 90] NONSPECIFIC ST & T-WAVE ABNORMALITY ABNORMAL RHYTHM ECG Electronically Signed On 07-26-2017 15:39:30 EDT by Jaye Gomez
[2017-07-27 04:28] LABS: Hematocrit 35.3 % (35.3-44.9); Hemoglobin 11.8 g/dL (11.5-15.4); Mean Corpuscular HGB Conc 33.4 g/dL (31.6-35.5); Mean Corpuscular Hemoglobin 30.3 pg (28.0-33.3); Mean Corpuscular Volume 90.7 fL (83.0-100.0); Mean Platelet Volume 10.7 fL (9.4-12.4); Platelet Count 193 K/mcL (140-400); Red Blood Count 3.89 M/mcL (3.82-4.97); Red Cell Distribution Width 13.3 % (11.5-14.5)
[2017-07-27 04:47] LABS: BUN/Creatinine Ratio 27 (6-26); Blood Urea Nitrogen 22 mg/dL (8-23); Calcium 9.2 mg/dL (8.6-10.3); Carbon Dioxide 24 mEq/L (23-29); Chloride 98 mEq/L (98-107); Glucose 325 mg/dL (70-105); Osmolality,Calculated 290 (280-300); Potassium 3.7 mEq/L (3.5-5.1); Sodium 132 mEq/L (136-145); eGFR For African Americans > 60 (> 60); eGFR For Non-African Americans > 60 (> 60)
[2017-07-27] MEDS: Insulin LISPRO 300 UNITS/3 ML VIAL SQ SCH ×2 (08:08→12:48)
[2017-07-27] MEDS ORDERED: Furosemide 20 MG/2 ML VIAL IVP SCH (09:00)
[2017-07-27] MEDS: Diltiazem CD (24hr) 180 MG CAPSULE PO SCH (09:51)
[2017-07-27] MEDS: Aspirin Enteric Coated 81 MG Tablet PO SCH (09:51)
[2017-07-27] MEDS: predniSONE 20 MG TABLET PO SCH (09:52)
[2017-07-27] MEDS: Metoprolol XL (24 HR) Succ 50 MG TAB.ER.24H PO SCH (09:53)
[2017-07-27] MEDS: Levofloxacin 750 MG/150 ML 750 MG/150 ML BAG IVPB SCH (09:55)
--- NOTE | 2017-07-27 10:49 | Discharge Summary ---
- NOTES TO OUTPATIENT PROVIDER Notes to Outpatient Provider: Recommend repeat CMP within 1 week to monitor renal function and electrolytes Orders not resulted at time of discharge: Pending orders 07/28/17 04:00 BMP [Basic Metabolic Panel] AM 0400 Complete Blood Count w/o Diff [HEME] AM 0400 07/29/17 04:00 BMP [Basic Metabolic Panel] AM 0400 Complete Blood Count w/o Diff [HEME] AM 0400 07/30/17 04:00 BMP [Basic Metabolic Panel] AM 0400 Complete Blood Count w/o Diff [HEME] AM 0400 Date of Encounter: 07/27/17 Time of Encounter: 10:40 - Discharge Diagnosis (1) Influenza B Priority: Primary Status: Acute Comments: symptomatic with shortness of breath, cough and URI symptoms. Respiratory PCR positive for influenza B. Cont Tamiflu for total course of 5 days. (2) Bronchitis Priority: Primary Status: Acute Comments: symptomatic with cough, URI symptoms and shortness of breath. CXR without infiltrate. Positive for influenza B as noted above. Suspect component of COPD exacerbation/bronchitis as well. Sometimes improved with IV Levaquin, steroids (refused bronchodilators because of cough). Discharge home on Levaquin (to complete a total course of 7 days), steroid burst. (3) Abdominal pain Priority: Primary Status: Acute Comments: complained of right upper quadrant pain that is worse with coughing. ABD CT with severe sigmoid colonic diverticulosis, no evidence of diverticulitis, otherwise nonacute. Suspect musculoskeletal with excessive cough. Encouraged bracing/splinting abdomen with cough. PRN Robitussin Qualifiers: Abdominal location: right upper quadrant Qualified Code(s): R10.11 - Right upper quadrant pain (4) Atrial fibrillation Priority: Secondary Status: Chronic Comments: per hx. initially tachycardic with heart rates in 100s which I suspect secondary to not having home medication. Rate controlled with resuming home BB , CCB. With transient asymptomatic bradycardia. Continue home BB, CCB. No anticoagulation due to history of GI bleed. Follow-up with cardiology outpatient. Qualifiers: Atrial fibrillation type: chronic Qualified Code(s): I48.2 - Chronic atrial fibrillation (5) Diabetes Priority: Primary Status: Chronic Comments: per hx. blood sugars uncontrolled; suspect secondary to dietary noncompliance and sedentary lifestyle now combined with use of steroids. Current ADA diet, weight management. Continue home diabetes medication regimen. Qualifiers: Diabetes mellitus type: type 2 Diabetes mellitus custodial insulin use: without custodial use Diabetes mellitus complication status: without complication Qualified Code(s): E11.9 - Type 2 diabetes mellitus without complications (6) Obesity Priority: Primary Status: Chronic Comments: BMI 47. Weight management encouraged. Qualifiers: Obesity type: unspecified obesity type Obesity classification: adult class 3 (BMI >= 40) Serious obesity comorbidity presence: without serious comorbidity Body mass index: BMI 40.0-44.9 Qualified Code(s): E66.9 - Obesity, unspecified; Z68.41 - Body mass index (BMI) 40.0-44.9, adult; Z68.41 - Body mass index (BMI) 40.0-44.9, adult; Z68.41 - Body mass index (BMI) 40.0-44.9 , adult; Z68.41 - Body mass index (BMI) 40.0-44.9, adult (7) Acute on chronic diastolic (congestive) heart failure Priority: Primary Status: Acute Comments: Symptomatic with shortness of breath and lower extremity edema. 07/25/17 TTE with EF 50%, indeterminate diastolic dysfunction, and no wall motion abnormalities. Takes lasix PRN home. Symptoms improved with IV Lasix. Educated on importance of low sodium diet, daily weights and fluid restriction. Discharge home on daily Lasix. Follow-up with cardiology outpatient. (8) Pulmonary hypertension Priority: Primary Status: Acute Comments: 07/25/2017 TTE with moderate pulmonary hypertension. Follows with Pulmonology. Suspect multifactorial with diastolic dysfunction, obesity and hypoxemia with sleep apnea. Recommend outpatient follow-up with pulmonology (9) Tricuspid regurgitation Priority: Primary Status: Acute Comments: TTE with moderate tricuspid regurgitation. Follow-up with Cardiology Qualifiers: Cardiac valve disease etiology: etiology unspecified Qualified Code(s): I07.1 - Rheumatic tricuspid insufficiency (10) Hypokalemia Priority: Primary Status: Acute Comments: K 2.9 on arrival. Secondary to Lasix. Potassium normalized with resuming home supplementation. Recommend repeat CMP within 1 week with PCP Hospital course: Please see assessment and plan for Hospital course Discharge discussed with: patient (Seen and examined at bedside, says she feels better would like to discharge home today. Still has some lower extremity edema but overall improved. Shortness of breath improved as well. Still has a nonproductive cough but this has decreased. Still with ABD pain with cough but overall improved. Educated on importance of dietary compliance regarding diabetes and weight management. Advised to follow-up with her primary drycleaner and glassware selector outpatient within 1-2 weeks.) - Time Spent with Patient Total time spent providing and/or coordinating discharge services: - Discharge Medications Prescriptions: Albuterol Sulfate [Albuterol Inhaler] 0 puff IH Q4HR PRN #1 hfa.aer.ad PRN Reason: Shortness Of Breath/Wheezing Furosemide [Lasix] 40 mg PO DAILY #30 tablet levoFLOXacin [Levaquin] 750 mg PO DAILY #4 tablet Oseltamivir [Tamiflu] 75 mg PO BID #5 capsule predniSONE [PredniSONE] 40 mg PO DAILY #4 tablet Home Medications: Alendronate Sodium [Fosamax] 70 mg PO QWEEK PRN 04/05/15 [History] Aspirin Enteric Coated [Aspirin EC] 81 mg PO DAILY 04/05/15 [History] Cholecalciferol (Vitamin D3) [Vitamin D3] 1,000 unit PO DAILY 04/05/15 [History] Ergocalciferol (VITAMIN D2) [Vitamin D2 (50,000 UNIT)] 50,000 unit PO QWEEK PRN 04/05/15 [History] Letrozole [Femara] 2.5 mg PO DAILY 04/05/15 [History] Lovastatin [Altoprev] 40 mg PO DAILY 04/05/15 [History] Omeprazole [PriLOSEC] 20 mg PO DAILY 04/05/15 [History] Pioglitazone [Actos] 45 mg PO DAILY 04/05/15 [History] Potassium Chloride 20 meq PO BID 04/05/15 [History] Sertraline [Zoloft] 100 mg PO DAILY 04/05/15 [History] hydroCHLOROthiazide [Hydrochlorothiazide] 25 mg PO DAILY 04/05/15 [History] Diltiazem CD (24hr) [Cardizem CD] 360 mg PO DAILY #30 cap.er.24h 04/07/15 [Rx] Metoprolol XL (24 HR) Succ [Toprol Xl] 100 mg PO DAILY #30 tab.er.24h 04/07/15 [ Rx] Levothyroxine [Synthroid] 150 mcg PO DAILY 07/25/17 [History] Oxybutynin Chloride [Ditropan Xl] 10 mg PO DAILY 07/25/17 [History] Albuterol Sulfate [Albuterol Inhaler] 0 puff IH Q4HR PRN #1 hfa.aer.ad 07/27/17 [Rx] Furosemide [Lasix] 40 mg PO DAILY #30 tablet 07/27/17 [Rx] Oseltamivir [Tamiflu] 75 mg PO BID #5 capsule 07/27/17 [Rx] levoFLOXacin [Levaquin] 750 mg PO DAILY #4 tablet 07/27/17 [Rx] predniSONE [PredniSONE] 40 mg PO DAILY #4 tablet 07/27/17 [Rx] Allergies/Adverse Reactions: 3 Allergy/AdvReac Type Severity Reaction Status Date / Time codeine Allergy Palpitation Verified 04/10/16 20:43 s Date of admission: 07/25/17 01:03 Primary care physician: Darline Coker Discharging clinician: Justina Calderón Anticipated date of discharge: 07/27/17 - Constitutional Vitals: Temp Pulse Resp BP Pulse Ox 97.8 F 56 16 132/94 92 07/27/17 07:33 07/27/17 07:33 07/27/17 07:33 07/27/17 07:33 07/27/17 07:33 General appearance: Present: A&O X 3, morbidly obese, no acute distress - Head Head exam: Present: atraumatic, normocephalic - Eye Eye exam: Present: PERRL, conjuntiva pink, sclera anicteric Pupils: Present: PERRL - Neck Neck exam general surgery: Present: supple, trachea midline. Absent: lymphadenopathy - Respiratory Respiratory exam: Present: CTAB. Absent: accessory muscle use, rales, rhonchi, wheezes - Cardiovascular Cardiovascular exam: Present: RRR, +S1, +S2. Absent: diastolic murmur, gallop, rubs, systolic murmur - GI/Abdominal GI/Abdominal exam: Present: normal bowel sounds, soft, no peritoneal signs. Absent: distended, tenderness - Extremities Exam Extremities exam: Present: pedal edema, warm, radial pulses palpable and symmetrical. Absent: calf tenderness, cyanotic - Neurological Exam Neurological exam: Present: CN II-XII intact, oriented X3, no focal deficits. Absent: pronater drift, facial droop, speech deficit - Skin Skin exam: Present: dry, intact - Patient Status Disposition: Home, Self-Care Condition: Good Functional capacity at discharge: uses cane/walker Overall status at discharge: patient is progressing back to baseline - Discharge Instructions Instructions: Influenza (DC), Levofloxacin (By mouth), Prednisone (By mouth), Furosemide (By mouth), Heart Failure (DC), Diabetes Mellitus Type 2 in Adults ( DC) Follow Up With: Darline Coker [Primary Care Provider] - 07/31/17 1:00 pm Milly Julian MD [Partnered Physician] - (Please call for follow-up appt within 2-3 weeks) Obi Pelaez DO [Partnered Physician] - (Please call for follow-up appt within 1 week) - Diet and Activity Activity: increase activity as tolerated Diet: diabetic diet, low fat, low cholesterol, low salt diet - VTE Documentation of Mechanical Device: Intermittent pneumatic compression device
[2017-07-27 11:29] VITALS: BP 149/94
[2017-07-28] MEDS ORDERED: levoFLOXacin 750 MG TABLET PO SCH (09:00)
== END 2017-07-27 13:48 | disposition home or self-care (01) ==
LOC: EMEROO 18:33 → 3BNU 18:33
PROVIDERS: ADMIT Internal Medicine; ATTEND Internal Medicine